=== PATIENT | female | born 1980 | race African-American/Black ===

== ENCOUNTER 2025-06-27 00:06 | Emergency (ER) | payer BC ==
[2025-06-27] MEDS ORDERED: Ondansetron PF 4 MG/2 ML Vial ONE (00:38)
[2025-06-27 00:44] LABS: #Basophils 0.04 10x3/uL (0.0-0.2); #Eosinophils 0.13 10x3/uL (0.0-0.7); #Monocytes 0.39 10x3/uL (0.11-0.59); #Neutrophils 3.59 10x3/uL (1.40-6.50); %Basophils 0.6 % (0.0-1.0); %Eosinophils 1.9 % (0.0-10.0); %Lymphocytes 37.6 % (21.0-51.0); %Monocytes 5.8 % (0.0-10.0); %Neutrophils 53.8 % (42.0-75.0); Hematocrit 35.8 % (36.0-47.0); Hemoglobin 11.7 g/dL (12.0-16.0); Mean Corpuscular Hemoglobin 29.0 pg (27.0-31.0); Mean Corpuscular Volume 88.8 fL (78.0-98.0); Platelet Count 274 10x3/uL (130-400); Red Blood Cell (RBC) Count 4.03 mill/uL (4.20-5.40); White Blood Cell (WBC) Count 6.68 10x3/uL (4.8-10.8)
[2025-06-27 00:58] LABS: ALT (SGPT) 14 U/L (Less than 34); AST (SGOT) 17 U/L (11-34); Albumin 3.8 g/dL (3.1-4.5); Alkaline Phosphatase 59 U/L (40-110); Anion Gap 12 mmol/L (10-20); BUN (Urea Nitrogen) 10 mg/dL (7.0-18.7); Bilirubin, Total 0.2 mg/dL (0.3-1.2); Calc. Creatinine Clearance 0 mL/min (70-130); Calcium 8.7 mg/dL (7.8-10.44); Carbon Dioxide 24 mmol/L (22-29); Chloride 106 mmol/L (98-107); Globulin 3.8 g/dL (2.4-3.5); Glucose 119 mg/dL (70-105); Lipase 23 U/L (8-78); Potassium 3.4 mmol/L (3.5-5.1); Sodium 139 mmol/L (136-145)
[2025-06-27 01:01] LABS: BHCG - Serum Negative (NEGATIVE); Pregs Control Background? CLEAR/WHITE (CLR/WHITE); Pregs Control Bar Appear? YES (CONTROL BAR)
[2025-06-27] MEDS ORDERED: Pantoprazole 40 MG VIAL ONE (01:41)
[2025-06-27] MEDS ORDERED: Acetaminophen 500 MG TAB ONE (01:41)
[2025-06-27] MEDS ORDERED: Simethicone Chewable 80 MG TAB PO SCH (01:45)
[2025-06-27] MEDS ORDERED: Methocarbamol 500 MG TAB ONE (02:27)
== END 2025-06-27 02:59 | disposition home or self-care (01) ==
LOC: ERS 00:06
DX: M79.18 Myalgia, other site (principal); R14.0 Abdominal distension (gaseous); I10 Essential (primary) hypertension; F17.210 Nicotine dependence, cigarettes, uncomplicated; F17.290 Nicotine dependence, other tobacco product, uncomplicated; Z79.899 Other long term (current) drug therapy
CPT/HCPCS: 80053; 83690; 84484; 84703; 85025; 93005; 96374; J2405; J2470